=== PATIENT | male | born 1985 | race Asian ===

== ENCOUNTER 2022-07-30 18:02 | Emergency (ER) | payer OTHER ==
[~2022-07-30] VITALS: Ht 172.7 cm; Wt 72.6 kg
--- NOTE | 2022-07-30 18:20 | NUR ---
TECH AT BEDSIDE FOR EKG
[2022-07-30] MEDS ORDERED: IBUPROFEN 600 MG TABLET ONE (19:22)
[2022-07-30] MEDS ORDERED: LORAZEPAM 1 MG TABLET ONE (19:22)
--- NOTE | 2022-07-30 19:25 | NUR ---
MOTRIN AND ATIVAN PO GIVEN INDICATED, TED WELL
[2022-07-30] MEDS ORDERED: IBUPROFEN 600 MG TABLET PO ONE (19:30)
[2022-07-30] MEDS ORDERED: LORAZEPAM 1 MG TABLET PO ONE (19:30)
[2022-07-30 21:08] VITALS: BP 124/79
--- NOTE | 2022-07-30 21:08 | NUR ---
Patient discharged to home in stable condition. Written and verbal after care instructions given. Patient verbalizes understanding of instruction.
== END 2022-07-30 21:11 | disposition home or self-care (01) ==
LOC: ER 18:26
DX: R07.89 Other chest pain (principal); I10 Essential (primary) hypertension
CPT/HCPCS: 71045-TC